=== PATIENT | male | born 1990 | race Caucasian/White ===

== ENCOUNTER 2019-12-22 19:03 | Emergency (ER) | payer SELFPAY ==
[~2019-12-22 19:03] MED LIST: ANTIVERT/2525 MG PO
[2019-12-22 19:58] LABS: BASO # 0.1 10*3/uL (0.0-0.1); BASO % 0.8 % (0.0-1.0); EOS # 0.4 10*3/uL (0.0-0.4); HEMATOCRIT 46.7 % (42.0-52.0); LYMPH # 2.8 10*3/uL (1.3-4.4); LYMPH % 31.5 % (27.0-41.0); MEAN CELL VOLUME 84.6 fl (80.0-94.0); MEAN CORPUSCULAR HGB CONC 34.3 g/dl (33.0-37.0); MEAN PLATELET VOLUME 10.4 fl (9.6-12.3); MONO # 0.5 10*3/uL (0.1-1.0); NEUT # 5.1 10*3/uL (2.3-7.9); NEUT % 57.1 % (47.0-73.0); PLATELET COUNT AUTOMATED 238 10*3/uL (130-400); RED BLOOD COUNT 5.52 10*6/uL (4.50-5.90); RED CELL DISTRI WIDTH 12.3 % (0-14.5); WHITE BLOOD COUNT 8.9 10*3/uL (4.8-10.8)
[2019-12-22 20:19] LABS: ALBUMIN 3.6 gm/dl (3.1-4.5); ALKALINE PHOSPHATASE 118 U/L (45-117); BUN 14 mg/dl (7-24); CHLORIDE 112 mmol/L (98-107); CREATININE 0.95 mg/dL (0.70-1.30); SGOT/AST 25 IU/L (3-35); SGPT/ALT 55 U/L (12-78); SODIUM 143 mmol/L (136-145); TOTAL PROTEIN 7.3 gm/dL (6.4-8.2); TROPONIN I < 0.015 ng/ml (<0.045)
== END 2019-12-22 23:47 | disposition home or self-care (01) ==
LOC: ED 19:03
PROVIDERS: Emergency Medicine
DX: R00.2 Palpitations (principal); E86.0 Dehydration; F17.200 Nicotine dependence, unspecified, uncomplicated; Z88.0 Allergy status to penicillin; Z88.2 Allergy status to sulfonamides

== ENCOUNTER 2021-09-30 12:24 | Emergency (ER) | payer OTHER ==
[~2021-09-30] VITALS: Ht 175.2 cm; Wt 99.8 kg
[2021-09-30] MEDS ORDERED: NAPROSYN500 MG PO (14:47)
[2021-09-30] MEDS ORDERED: MEDROL DOSEPAK4 MG PO (14:47)
[2021-09-30] MEDS ORDERED: ZANAFLEX4 MG PO (14:47)
== END 2021-09-30 14:58 | disposition home or self-care (01) ==
LOC: ED 12:24
DX: S16.1XXA Strain of muscle, fascia and tendon at neck level, initial encounter (principal); Z88.0 Allergy status to penicillin; Z88.2 Allergy status to sulfonamides; X50.0XXA Overexertion from strenuous movement or load, initial encounter; Y93.89 Activity, other specified; Y92.89 Other specified places as the place of occurrence of the external cause; Y99.0 Civilian activity done for income or pay

== ENCOUNTER 2024-10-24 13:06 | Emergency (ER) | payer OTHER ==
[~2024-10-24] VITALS: Ht 175.2 cm; Wt 108.9 kg
[~2024-10-24 13:06] MED LIST changes: +MEDROL DOSEPAK4 MG PO; +NAPROSYN500 MG PO; +ZANAFLEX4 MG PO
[2024-10-24] MEDS ORDERED: SODIUM CHLORIDE 0.9% 500 ML IV ONE (14:30)
[2024-10-24] MEDS ORDERED: Metoclopramide Hydrochloride 10 MG/2 ML VIAL IV ONE (14:30)
[2024-10-24] MEDS ORDERED: diphenhydrAMINE hydrochloride 50 MG/ML VIAL IV ONE (14:30)
[2024-10-24] MEDS ORDERED: Ondansetron Hydrochloride 4 MG/2 ML VIAL IV ONE (14:30)
[2024-10-24 15:14] LABS: BASO # 0.1 10*3/uL (0.0-0.1); BASO % 0.6 % (0.0-1.0); EOS # 0.2 10*3/uL (0.0-0.4); EOS % 1.4 % (1.0-4.0); MEAN CELL VOLUME 84.5 fl (80.0-94.0); MEAN CORPUSCULAR HGB 28.3 pg (27.0-31.0); MEAN PLATELET VOLUME 10.2 fl (9.6-12.3); MONO # 0.7 10*3/uL (0.1-1.0); MONO % 6.7 % (3.0-9.0); NEUT # 7.2 10*3/uL (2.3-7.9); NEUT % 69.4 % (47.0-73.0); NUCLEATED RED BLOOD CELL 0.0 % (0.0-0.0); NUCLEATED RED BLOOD CELL 0.0 10*3/uL (0.0-0.0); PLATELET COUNT AUTOMATED 246 10*3/uL (130-400); RED CELL DISTRI WIDTH 12.3 % (0-14.5)
[2024-10-24 15:55] LABS: BUN 13 mg/dl (9-23); SGPT/ALT 35 U/L (5-49)
[2024-10-24] MEDS ORDERED: CARAFATE1 G1 PO (17:24)
[2024-10-24] MEDS ORDERED: PROTONIX40 MG PO (17:24)
[2024-10-24] MEDS ORDERED: Ondansetron4 MG PO (17:24)
[2024-10-24] MEDS ORDERED: REGLAN10 M1 PO (17:24)
== END 2024-10-24 18:09 | disposition home or self-care (01) ==
LOC: ED 13:06
PROVIDERS: Emergency Medicine
DX: K29.70 Gastritis, unspecified, without bleeding (principal); K92.1 Melena; K30 Functional dyspepsia; R10.12 Left upper quadrant pain; Z88.0 Allergy status to penicillin; Z88.2 Allergy status to sulfonamides